=== PATIENT | female | born 1945 ===

== ENCOUNTER 2022-08-24 08:15 | Inpatient (IN) | payer OTHER ==
[~2022-08-24] VITALS: Ht 180.3 cm; Wt 79.4 kg
[2022-08-24] MEDS ORDERED: JARDIANCE10 MG PO (09:59)
[2022-08-24] MEDS ORDERED: NIFEDIPINE ER30 MG PO (10:00)
[2022-08-24] MEDS ORDERED: TENORMIN25 MG PO (10:00)
[2022-08-24] MEDS ORDERED: ATACAND32 MG PO (10:02)
[2022-08-24] MEDS ORDERED: PROTONIX40 MG PO (10:03)
[2022-08-24] MEDS ORDERED: ZOCOR20 MG PO (10:04)
[2022-08-24] MEDS ORDERED: KERENDIA PO (10:04)
[2022-08-24] MEDS ORDERED: SINGULAIR10 MG PO (10:04)
[2022-08-24] MEDS ORDERED: BETAXOLOL HCL5 ML OPHT (10:05)
[2022-08-24] MEDS ORDERED: TRULICITY0.75 MG/0. (10:05)
[2022-08-24] MEDS ORDERED: GLIPIZIDE XL5 MG PO (10:05)
[2022-08-25] MEDS ORDERED: BUDESONIDE-FO10.2 G1 (09:14)
[2022-08-25] MEDS ORDERED: ST. JOSEPH ASPI81 M2 (09:14)
[2022-08-25] MEDS ORDERED: ATORVASTATIN CA40 MG (09:14)
[2022-08-25] MEDS ORDERED: KERENDIA20 MG (09:14)
[2022-08-25] MEDS ORDERED: HYDROCHLOROTH12.5 MG (09:15)
== END 2022-08-31 14:23 | DRG 470 ==
LOC: SURH 08-25 06:51 → O/R 08-25 06:51 → SURG 08-25 08:15 → SURH 08-25 15:51
PROVIDERS: ADMIT Orthopaedic Surgery; ATTEND Orthopaedic Surgery
PROC: 0SRC0J9 Replacement of Right Knee Joint with Synthetic Substitute, Cemented, Open Approach (ICD-10-PCS; principal; 2022-08-25 10:45)
PROC: BW24YZZ Computerized Tomography (CT Scan) of Chest and Abdomen using Other Contrast (ICD-10-PCS; 2022-08-28)
DX: M17.11 Unilateral primary osteoarthritis, right knee (principal); D62 Acute posthemorrhagic anemia; M85.661 Other cyst of bone, right lower leg; I10 Essential (primary) hypertension; E78.5 Hyperlipidemia, unspecified; G47.33 Obstructive sleep apnea (adult) (pediatric); E11.9 Type 2 diabetes mellitus without complications; Z96.651 Presence of right artificial knee joint; Z20.822 Contact with and (suspected) exposure to COVID-19

== ENCOUNTER 2022-12-18 13:01 | Outpatient (CLI) | payer OTHER ==
[~2022-12-18 13:01] MED LIST: ATACAND32 MG PO; ATORVASTATIN CA40 MG; BETAXOLOL HCL5 ML OPHT; BUDESONIDE-FO10.2 G1; GLIPIZIDE XL5 MG PO; HYDROCHLOROTH12.5 MG; JARDIANCE10 MG PO; KERENDIA PO; KERENDIA20 MG; NIFEDIPINE ER30 MG PO; PROTONIX40 MG PO; SINGULAIR10 MG PO; ST. JOSEPH ASPI81 M2; TENORMIN25 MG PO; TRULICITY0.75 MG/0.; ZOCOR20 MG PO
== END 2022-12-18 13:06 | disposition home or self-care (01) ==
LOC: RAD 13:01
PROVIDERS: ATTEND Orthopaedic Surgery
DX: M25.561 Pain in right knee (principal); M25.562 Pain in left knee